=== PATIENT | male | born 1950 | race Hispanic/Latino ===

== ENCOUNTER → 2018-06-13 | Outpatient (CLI) | payer OTHER ==
[~2018-06-13] MED LIST: ASPI-1197 PO; DONE5TAB26 PO; EZET10 PO; INSLAN SQ; LISI10TA7 PO; METF-444 PO; METO-408 PO; SIMV40TA5 PO
== END | disposition home or self-care (01) ==
LOC: RAH 09:48
PROVIDERS: ATTEND Orthopaedic Surgery
DX: M17.12 Unilateral primary osteoarthritis, left knee (principal); M11.262 Other chondrocalcinosis, left knee; M16.11 Unilateral primary osteoarthritis, right hip; Z72.89 Other problems related to lifestyle
CPT/HCPCS: 73502; 73562